=== PATIENT | female | born 1990 | race Asian ===

== ENCOUNTER 2019-10-31 08:00 | Outpatient (CLI) | payer OTHER ==
[2019-10-31 22:22] LABS: TRICHOMONAS VAGINALIS DNA NEGATIVE (NEGATIVE)
== END 2019-10-31 23:59 ==
LOC: LAB.R 08:00
PROVIDERS: ATTEND Obstetrics & Gynecology
DX: Z36.89 Encounter for other specified antenatal screening (principal)
CPT/HCPCS: 87491; 87591; 87661; 87797

== ENCOUNTER 2019-11-18 13:41 | Outpatient (CLI) | payer OTHER ==
[2019-11-18 14:05] VITALS: BP 127/84
--- NOTE | 2019-12-12 21:41 | PROCEDURE REPORT ---
- HPI Diagnosis/Indication for NST: Other (SPOTTING) Current EDU 11/25/19 Gestation 39 Weeks and 0 Days 1 Para 0 Vital Signs Temperature 98.2 F 11/18/19 14:02 Heart Rate 113 H 11/18/19 14:02 Respiratory Rate 16 11/18/19 14:02 Blood Pressure 127/84 H 11/18/19 14:02 O2 Saturation 99 11/18/19 14:02 Temperature 98.2 F 11/18/19 14:02 Heart Rate 113 H 11/18/19 14:02 Respiratory Rate 16 11/18/19 14:02 Blood Pressure 127/84 H 11/18/19 14:02 O2 Saturation 99 11/18/19 14:02 - NST Procedure NST Procedure Start Date 11/18/19 Start Time 13:47 Stop Time 14:37 Vibroacoustic Stimulation Used No Patient States Movement Yes - Results and Plan Findings/Impression: Category 1 NST. No heavy bleeding. RTC PRN increasing sx of labor.
== END 2019-11-18 14:45 | disposition home or self-care (01) ==
LOC: WFO 13:41 → FBP 13:42 → WFO 14:45
PROVIDERS: ATTEND Obstetrics & Gynecology
DX: Z34.03 Encounter for supervision of normal first pregnancy, third trimester (principal); Z3A.39 39 weeks gestation of pregnancy
CPT/HCPCS: 59025; 99213